=== PATIENT | female | born 1980 | race Caucasian/White ===

== ENCOUNTER 2021-10-23 04:50 | Emergency (ER) | payer MEDICAID ==
[~2021-10-23] VITALS: Ht 167.6 cm; Wt 90.9 kg
[~2021-10-23 04:50] MED LIST: ALBU8HFA PO; NITR100C6 PO; PROC-8 PO
[2021-10-23] MEDS ORDERED: diphenhydrAMINE 50 mg/ml inj IM ONE (05:00)
[2021-10-23] MEDS ORDERED: LORazepam 2 mg/ml vial IM ONE ×2 (05:00→06:05)
[2021-10-23] MEDS ORDERED: haloperidol lactate 5mg/ml inj IM ONE (05:00)
--- NOTE | 2021-10-23 05:46 | NUR ---
WE ARE WAITING UNTIL PT CALMS DOWN BEFORE DRAWING BLOODWORK
--- NOTE | 2021-10-23 06:15 | NUR ---
STILL UNABLE TO TAKE BP PT MOVES TOO MUCH AND IS AGITATED. PUT IN MORE MED ORDERS. PT MEDICATED.
--- NOTE | 2021-10-23 07:14 | NUR ---
PATIENT IS DOZING, THEN ABRUPTLY WAKING UP AND YELLING OUT. PATIENT YELLING, "I AM TIRED!" 4 POINT RESTRAINTS INTACT WITH GOOD C/S TO EXTREMS. RESTLESS WHEN AWAKE.
--- NOTE | 2021-10-23 08:21 | NUR ---
PT'S SISTER CALLED FOR INFORMATION ON PT'S STATUS. SISTER WAS NOTIFIED THAT PT WAS IN THE ER, BUT INFORMATION ON HER STATUS COULD NOT BE SHARED AT THIS TIME AND INFORMED THAT PT IS UNABLE TO GIVE CONSENT CURRENTLY.
[2021-10-23 08:51] LABS: BASOPHILS # (AUTO) 0.1 X10'3 (0-0.2); BASOPHILS % (AUTO) 0.4 % (0-1); EOSINOPHILS # (AUTO) 0.2 X10'3 (0-0.9); EOSINOPHILS % (AUTO) 1.1 % (0-6); HEMATOCRIT 38.4 % (35.0-45.0); HEMOGLOBIN 13.1 g/dl (12.0-16.0); LYMPHOCYTES # (AUTO) 2.8 X10'3 (1.1-4.8); LYMPHOCYTES % (AUTO) 17.5 % (21-51); MEAN CORPUSCULAR HEMOGLOBIN 30.2 PG (27.0-31.0); MEAN CORPUSCULAR HGB CONC 34.1 g/dL (33.0-36.5); MEAN CORPUSCULAR VOLUME 88.7 FL (78-98); MEAN PLATELET VOLUME 9.4 FL (7.4-10.4); MONOCYTES # (AUTO) 0.7 X10'3 (0-0.9); MONOCYTES % (AUTO) 4.4 % (2-12); NEUTROPHILS # (AUTO) 12.2 X10'3 (1.8-7.7); NEUTROPHILS % (AUTO) 76.6 % (42-75); PLATELET COUNT 304 X10'3 (140-440); RED BLOOD COUNT 4.33 X10'6 (4.20-5.60); RED CELL DISTRIBUTION WIDTH 13.4 % (11.5-14.5); WHITE BLOOD COUNT 15.9 X10'3 (4.5-11.0)
[2021-10-23 09:04] LABS: ALANINE AMINOTRANSFERASE 24 U/L (12-78); ALBUMIN 4.3 G/DL (3.4-5.0); ALBUMIN/GLOBULIN RATIO 1.3 (1.1-1.5); ALKALINE PHOSPHATASE 71 IU/L (46-116); ANION GAP 9 (8-16); ASPARTATE AMINO TRANSFERASE 23 U/L (10-37); BILIRUBIN,TOTAL 0.7 MG/DL (0.1-1.0); BLOOD UREA NITROGEN 14 MG/DL (7-18); BUN/CREATININE RATIO 16.5 (6.6-38.0); CALCIUM 9.3 MG/DL (8.5-10.1); CHLORIDE 105 MMOL/L (99-107); CREATININE 0.85 MG/DL (0.40-0.90); ETHANOL < 0.010 GM/DL (0.0-0.010); GLUCOSE 104 MG/DL (70-104); SODIUM 138 MMOL/L (135-145); TOTAL CARBON DIOXIDE 23.9 MMOL/L (24-32); TOTAL PROTEIN 7.5 G/DL (6.4-8.2); eGFR 74 ML/MIN
--- NOTE | 2021-10-23 09:58 | NUR ---
TC FROM PATIENT'S SISTER, AYDEN. CONTACT NUMBER IS [phone].
--- NOTE | 2021-10-23 10:00 | NUR ---
PATIENT'S SISTER, AYDEN STATES THAT PATIENT HAS HAD MENTAL HEALTH PROBLEMS IN THE PAST AND WAS AT [facility], APPROX 7 YEARS AGO, FOR TREATMENT. AYDEN STATES THAT SHE IS AWARE OF GLORIA USING ILLICIT DRUGS AND HAS WITNESSED HER HAVING ABNORMAL BEHAVIOR THE LAST COUPLE OF TIMES SHE SAW HER.
[2021-10-23] MEDS ORDERED: ringers solution, lactated 1000ml IV soln IV ONE (11:30)
[2021-10-23] MEDS ORDERED: POTASSIUM BICARB 20meq eff tab 20 MEQ TABLET.EFF PO ONE (11:30)
--- NOTE | 2021-10-23 12:54 | NUR ---
SISTER, AYDEN, CALLED IN FOR CONDITION REPORT.
[2021-10-23] MEDS ORDERED: potassium CL 10mEq/100ml bag 100 ML IV ONE (13:25)
--- NOTE | 2021-10-23 17:18 | NUR ---
TC FROM PATIENT'S MOTHER FOR CONDITION REPORT. MOTHER OR SISTER WILL CHECK BACK LATER FOR UPDATED CONDITION REPORT.
--- NOTE | 2021-10-23 18:30 | NUR ---
ASSUMED CARE OF PT. PT SLEEPING ON HER BACK. 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 NO MECHANICAL RESTRAINTS.
--- NOTE | 2021-10-23 19:33 | NUR ---
PT SLEEPING ON HER SIDE. EQUAL RISE AND FALL OF CHEST. ON MONITOR.
--- NOTE | 2021-10-23 20:30 | NUR ---
CALLED [facility]OW RN TO GIVE REPORT.
--- NOTE | 2021-10-23 20:30 | NUR ---
PT PROVIDED URINE SAMPLE. COVID SWAB RESULTS ARE IN. REPEAT ELECTROLYTE LABS HAVE BEEN DRAWN.
[2021-10-23 20:39] LABS: URINE HCG NEGATIVE (NEG)
--- NOTE | 2021-10-23 20:40 | NUR ---
The patient to bed 24. She is alert and oriented. She is pleasant and denies that she is having psychotic symptoms or feels suicidal. She is calling her family so they will not worry about her. She ate a meal. 5150 process explained to her and that she will be seen by [facility] in the morning.
[2021-10-23 20:42] LABS: BASOPHILS % (AUTO) 0.3 % (0-1); EOSINOPHILS # (AUTO) 0.2 X10'3 (0-0.9); EOSINOPHILS % (AUTO) 1.5 % (0-6); HEMATOCRIT 34.5 % (35.0-45.0); HEMOGLOBIN 12.1 g/dl (12.0-16.0); LYMPHOCYTES # (AUTO) 3.5 X10'3 (1.1-4.8); LYMPHOCYTES % (AUTO) 34.8 % (21-51); MEAN CORPUSCULAR HEMOGLOBIN 31.4 PG (27.0-31.0); MEAN CORPUSCULAR HGB CONC 35.1 g/dL (33.0-36.5); MEAN CORPUSCULAR VOLUME 89.4 FL (78-98); MEAN PLATELET VOLUME 9.3 FL (7.4-10.4); MONOCYTES # (AUTO) 0.5 X10'3 (0-0.9); NEUTROPHILS # (AUTO) 5.9 X10'3 (1.8-7.7); NEUTROPHILS % (AUTO) 58.4 % (42-75); PLATELET COUNT 261 X10'3 (140-440); RED BLOOD COUNT 3.86 X10'6 (4.20-5.60); RED CELL DISTRIBUTION WIDTH 13.2 % (11.5-14.5); WHITE BLOOD COUNT 10.1 X10'3 (4.5-11.0)
[2021-10-23 20:42] LABS: CLARITY,URINE CLEAR (Clear); COLOR,URINE YELLOW (Yellow); GLUCOSE, URINE NEGATIVE (Neg); KETONES,URINE 15 mg/dl (Neg); LEUKOCYTE ESTERASE ,URINE NEGATIVE (Neg); NITRITES, URINE NEGATIVE (Neg); OCCULT BLOOD,URINE TRACE-INTACT (Neg); PROTEIN,URINE NEGATIVE (Neg); UROBILINOGEN,URINE 0.2 E.U/dL (0.2-1.0)
[2021-10-23] MEDS ORDERED: BUSP30TA2 PO (20:42)
[2021-10-23] MEDS ORDERED: DULO60CA63 PO (20:43)
[2021-10-23 20:45] LABS: ALANINE AMINOTRANSFERASE 19 U/L (12-78); ALBUMIN 3.5 G/DL (3.4-5.0); ALBUMIN/GLOBULIN RATIO 1.3 (1.1-1.5); ALKALINE PHOSPHATASE 60 IU/L (46-116); ANION GAP 8 (8-16); ASPARTATE AMINO TRANSFERASE 19 U/L (10-37); BILIRUBIN,TOTAL 1.1 MG/DL (0.1-1.0); BLOOD UREA NITROGEN 10 MG/DL (7-18); BUN/CREATININE RATIO 16.7 (6.6-38.0); CALCIUM 8.5 MG/DL (8.5-10.1); CHLORIDE 106 MMOL/L (99-107); GLUCOSE 90 MG/DL (70-104); SODIUM 140 MMOL/L (135-145); TOTAL CARBON DIOXIDE 25.7 MMOL/L (24-32); TOTAL PROTEIN 6.3 G/DL (6.4-8.2); eGFR > 90 ML/MIN
[2021-10-23 20:51] LABS: UA COLLECTION TYPE CLN CATCH MIDSTREAM
[2021-10-23 20:52] LABS: BACTERIA,URINE NONE SEEN /HPF (Neg); MUCUS STRANDS FEW /LPF (Neg); RBC,URINE 0-2 /HPF (0-2); SQUAMOUS EPITHELIAL CELL,UR FEW /LPF (FEW); WBC,URINE NONE SEEN /HPF (0-4)
[2021-10-23 20:58] LABS: URINE AMPHETAMINE SCREEN POSITIVE (Neg); URINE BARBITUATE SCREEN NEGATIVE (Neg); URINE BENZODIAZEPINES SCREEN NEGATIVE (Neg); URINE CANNABINOID SCREEN POSITIVE (Neg); URINE COCAINE SCREEN NEGATIVE (Neg); URINE METHADONE SCREEN NEGATIVE (Neg); URINE OPIATE SCREEN POSITIVE (Neg); URINE PHENCYCLIDINE SCREEN NEGATIVE (Neg)
--- NOTE | 2021-10-23 21:29 | NUR ---
The patient appears to be sleeping
--- NOTE | 2021-10-23 22:43 | NUR ---
The patient appears to be sleeping
--- NOTE | 2021-10-24 00:53 | NUR ---
The patient appears to be sleeping
--- NOTE | 2021-10-24 03:07 | NUR ---
The patient appears to be sleeping
--- NOTE | 2021-10-24 05:02 | NUR ---
The patient appears to be sleeping
--- NOTE | 2021-10-24 05:06 | NUR ---
PACKET SENT TO [facility]
[2021-10-24 05:19] VITALS: BP 94/54
--- NOTE | 2021-10-24 06:43 | NUR ---
Patient sleeping on her right side. No distress observed. Continue to monitor.
[2021-10-24] MEDS ORDERED: busPIRone 15mg tablet PO SCH (08:00)
[2021-10-24] MEDS ORDERED: duloxetine 30mg CAPSULE.DR PO SCH (08:00)
--- NOTE | 2021-10-24 08:05 | NUR ---
Patient eating her breakfast. No distress observed. Continue to monitor.
[2021-10-24] MEDS ORDERED: PROP10TA10 PO (08:07)
--- NOTE | 2021-10-24 09:05 | NUR ---
[facility], evaluating patient. No distress observed. Continue to monitor.
--- NOTE | 2021-10-24 09:20 | NUR ---
Patient runs to the [facility] and had diarrhea in her pants. Patient cleaned up and given clean underwear and scrubs. No distress observed. Continue to monitor.
--- NOTE | 2021-10-24 11:22 | NUR ---
Patient accepted at [facility] [place] by Jessica Avitia NP. Patient to be picked [id number].
--- NOTE | 2021-10-24 12:20 | NUR ---
Patient eating lunch. No distress observed. Continue to monitor
== END 2021-10-24 14:40 ==
LOC: ER 04:51
DX: F29 Unspecified psychosis not due to a substance or known physiological condition (principal); Z20.822 Contact with and (suspected) exposure to COVID-19; F15.10 Other stimulant abuse, uncomplicated; F17.210 Nicotine dependence, cigarettes, uncomplicated; K21.9 Gastro-esophageal reflux disease without esophagitis; F41.9 Anxiety disorder, unspecified
CPT/HCPCS: 36415; 80053; 80305; 80320; 81001; 81025; 84443; 85025; 87811; 96360; 96361; 96372; 99285; J1200; J1630; J2060; J3480; J7120

== ENCOUNTER 2021-11-05 20:14 | Emergency (ER) | payer MEDICAID ==
[~2021-11-05] VITALS: Ht 167.6 cm; Wt 90.9 kg
[~2021-11-05 20:14] MED LIST changes: -ALBU8HFA PO; +BUSP30TA2 PO; +DULO60CA63 PO; -NITR100C6 PO; -PROC-8 PO; +PROP10TA10 PO
[2021-11-05 21:10] VITALS: BP 120/81
[2021-11-05] MEDS ORDERED: CEPH250T PO (22:51)
[2021-11-05] MEDS ORDERED: SULF1TAB45 PO (22:51)
[2021-11-05] MEDS ORDERED: LIDOcaine 1% W/epiNEPHrine 1:200,000 10ml vial IJ ONE (22:55)
[2021-11-05] MEDS ORDERED: LIDOcaine 1% W/epiNEPHrine 1:100,000 20ml vial IJ ONE (22:55)
[2021-11-05] MEDS ORDERED: cephalexin 500mg capsule PO ONE (23:30)
[2021-11-05] MEDS ORDERED: sulfamethoxazole/trimethoprim DS (800/160mg) tablet PO ONE (23:30)
--- NOTE | 2021-11-05 23:42 | NUR ---
PO MEDS X2 GIVEN
== END 2021-11-05 23:42 | disposition home or self-care (01) ==
LOC: ER 20:14
DX: L03.011 Cellulitis of right finger (principal); K21.9 Gastro-esophageal reflux disease without esophagitis; F15.20 Other stimulant dependence, uncomplicated
CPT/HCPCS: 10060; 99283; J3490; A6449

== ENCOUNTER 2022-03-08 13:02 | Emergency (ER) | payer MEDICAID ==
[~2022-03-08] VITALS: Ht 167.6 cm; Wt 94.0 kg
[2022-03-08 14:12] VITALS: BP 139/91
--- NOTE | 2022-03-08 14:41 | NUR ---
PT SEEN AND DC'D BY PROVIDER
== END 2022-03-08 14:43 | disposition home or self-care (01) ==
LOC: ER 13:03
DX: R44.3 Hallucinations, unspecified (principal); K21.9 Gastro-esophageal reflux disease without esophagitis; F41.9 Anxiety disorder, unspecified; F17.200 Nicotine dependence, unspecified, uncomplicated; F15.10 Other stimulant abuse, uncomplicated; Z79.899 Other long term (current) drug therapy
CPT/HCPCS: 99281